=== PATIENT | male | born 1975 | race Caucasian/White ===

== ENCOUNTER 2017-11-20 10:48 | Emergency (ER) | payer OTHER ==
[~2017-11-20] VITALS: Ht 157.5 cm; Wt 83.9 kg
[~2017-11-20 10:48] MED LIST: ALFA250T PO; ASCA500 PO; ENAL10TA88 PO; MULT-506 PO; PRLSR20 PO
[2017-11-20 10:49] VITALS: TEMP 36.8; Ht 157.5 cm; Wt 83.9 kg
[2017-11-20] MEDS ORDERED: DOCU-94 PO (11:09)
[2017-11-20 11:31] LABS: PTT PATIENT 23.4 SECONDS (21.0-31.0)
--- NOTE | 2017-11-20 12:19 | DIAGNOSTIC IMAGING REPORT ---
R VENOUS DOPP LOWER EXT UNILAT CLINICAL HISTORY: Right calf pain/sent in by his surgeon pain. Edema. TECHNIQUE: Venous Doppler COMPARISON STUDY: None FINDINGS: Normal study IMPRESSION: Normal study The above report was generated using voice recognition software. It may contain grammatical, syntax or spelling errors. Electronically signed by: Cristobal Vazquez M.D. 11/20/2017 12:17 PM Dictated Date/Time: 11/20/2017 12:17 PM
[2017-11-20 12:37] VITALS: BP 119/91; PULSE 71; O2SAT 94
--- NOTE | 2017-11-20 12:42 | EMERGENCY ROOM VISIT NOTE ---
History First contact with patient: 10:58 Chief Complaint: LEG PAIN,LEG INJURY Stated Complaint: RIGHT LEG PAIN FOLLOWING SURGERY-DOC REFERRED History of Present Illness The patient is a 42 year old male who presents to the Emergency Room with complaints of right calf pain. The patient had a procedure done on a cyst behind his right ear yesterday. When he went to get off the table he started with some right calf pain. This morning when he got up he continues to have pain in the right leg especially with walking. They called the surgeon, Dr. Arndt and they were instructed to come into the ER to be evaluated for DVT. The patient denies any history of DVTs. He is not on any blood thinners. He does not smoke. The patient denies any chest pain or shortness of breath. Review of Systems 10 system review was performed and was negative unless stated otherwise history of present illness. Past Medical/Surgical History Medical Problems: (1) Benign hypertension (2) Cerebral palsy (3) Gastroesophageal reflux disease (4) History of congenital bicuspid aortic valve (5) Mental retardation (6) Recurrent small bowel obstruction Family History Cardiovascular disease Neurologic disorder Social History Smoking Status: Never Smoker Alcohol Use: none Drug Use: none Marital Status: single Housing Status: lives with family, lives with friends Occupation Status: disabled Current/Historical Medications Scheduled Docusate Sodium (Colace), 100 MG PO HS Enalapril (Vasotec), 10 MG PO BID Multivitamin (Multivitamin), 1 TAB PO DAILY Omeprazole (Prilosec), 20 MG PO QPM Physical Exam Vital Signs Date Time Temp Pulse Resp B/P (MAP) Pulse Ox O2 Delivery O2 Flow Rate FiO2 11/20/17 12:37 71 20 119/91 94 Room Air 11/20/17 10:49 36.8 97 18 154/105 97 Room Air Physical Exam GENERAL: 42-year-old white male appears in no acute distress. MENTAL Status: Alert and oriented 3. The patient has mild MR. HEAD: There is a wound behind his right ear consistent with recent surgery from yesterday. NECK: Supple, no lymphadenopathy noted. No carotid bruits noted. LUNGS: Clear auscultation without wheezes rales or rhonchi. CARDIAC: Regular rate and rhythm without murmur. Pulses is full and equal throughout. RIGHT LOWER EXTREMITY: No erythema or edema noted. No palpable cords noted. The patient is tender to palpation over the posterior aspect otherwise nontender. Negative Homans. Medical Decision & Procedures ER Provider Diagnostic Interpretation: R VENOUS DOPP LOWER EXT UNILAT CLINICAL HISTORY: Right calf pain/sent in by his surgeon pain. Edema. TECHNIQUE: Venous Doppler COMPARISON STUDY: None FINDINGS: Normal study IMPRESSION: Normal study The above report was generated using voice recognition software. It may contain grammatical, syntax or spelling errors. Electronically signed by: Cristobal Vazquez M.D. 11/20/2017 12:17 PM Laboratory Results Test 11/20/17 11:12 Prothrombin Time 10.1 SECONDS (9.0-12.0) Prothromb Time International Ratio 1.0 (0.9-1.1) Activated Partial Thromboplast Time 23.4 SECONDS (21.0-31.0) Partial Thromboplastin Ratio 0.9 ED Course The patient was evaluated. The patient's EMR medication list were reviewed. Coags were ordered. Venous Doppler of the right lower extremity was ordered interpreted by the radiologist as above without any evidence of DVT. Legs were normal. The patient was independently evaluated by Dr. Jenniffer jacome with treatment plan. The patient and family members were informed of the findings. The patient was discharged home in stable condition. Medical Decision Differential diagnosis include muscle strain, DVT, superficial phlebitis, varicose veins [place] Drug Monitoring Program Search Results: patient reviewed within database Medication Reconcilliation Current Medication List: was personally reviewed by ut Blood Pressure Screening Patient's blood pressure: Elevated blood pressure Blood pressure disposition: Elevated BP felt to be situational Impression Primary Impression: Leg pain, right Departure Information Dispostion Home / Self-Care Referrals Glenn Cotton D.O. (PCP) Forms HOME CARE DOCUMENTATION FORM, IMPORTANT VISIT INFORMATION Patient Instructions My [facility] Additional Instructions Tylenol and/or ibuprofen as needed for pain. May try ice or warm compresses to the affected area intermittently over the next several days. If symptoms persist or worsen, follow-up with your family doctor.
--- NOTE | 2017-11-20 12:46 | EMERGENCY ROOM VISIT NOTE ---
ED Visit Note First contact with patient: 10:58 Patient was seen by our PA/BANQUET CHEF. I was involved in the patient's care and did evaluate the patient myself. I was involved in the care throughout the ER stay. Patient presents with leg and calf pain. Workup here is benign, no DVT noted, the pain is likely musculoskeletal. The patient was discharged and reassured.
== END 2017-11-20 12:47 | disposition home or self-care (01) ==
LOC: C.EDB 10:49 → C.EDD 12:47
DX: M79.604 Pain in right leg (principal); I10 Essential (primary) hypertension; G80.9 Cerebral palsy, unspecified; K21.9 Gastro-esophageal reflux disease without esophagitis; F79 Unspecified intellectual disabilities; Z79.899 Other long term (current) drug therapy